=== PATIENT | male | born 1990 ===

== ENCOUNTER 2017-05-01 10:24 | Emergency (ER) | payer MEDICAID, OTHER ==
[2017-05-01 10:41] VITALS: BP 118/79
--- NOTE | 2017-05-01 11:19 | EDM.PDOC ---
ED HPI GENERAL MEDICAL PROBLEM - General Chief Complaint: Skin Complaint Stated Complaint: RASH ON LEFT LEG Time Seen by Provider: 05/01/17 10:40 Source of Information: Reports: Patient History Limitations: Reports: No Limitations - History of Present Illness INITIAL COMMENTS - FREE TEXT/NARRATIVE: The patient presents with a rash to the left leg and buttocks. This has been going on for 3 days but for about a week he has had tingling in his leg. He has chills but no fever. He has no chest pain, cough, or shortness of breath. He used some cream but it did not help. Onset: Gradual Duration: Day(s): (3) Location: Reports: Lower Extremity, Left Quality: Reports: Sharp Severity: Moderate Improves with: Reports: None Worsens with: Reports: None Associated Symptoms: Reports: Fever/Chills. Denies: Chest Pain, Cough, Headaches, Nausea/Vomiting, Shortness of Breath Left Groin Pain Score (Numeric/FACES): 8 - Related Data Allergies Allergy/AdvReac Type Severity Reaction Status Date / Time No Known Allergies Allergy Verified 05/01/17 10:42 Home Meds: Home Meds Hydrocodone/Acetaminophen [Hydrocodon-Acetaminophen 5-325] 1 - 2 each PO Q6HR PRN #20 tablet 05/01/17 [Rx] valACYclovir [Valtrex] 1,000 mg PO TID #21 tab 05/01/17 [Rx] Past Medical History - Past Health History Medical/Surgical History: Denies Medical/Surgical History Respiratory History: Reports: Bronchitis, Recurrent Genitourinary History: Reports: UTI, Recurrent Musculoskeletal History: Reports: Back Pain, Chronic, Fracture Neurological History: Reports: Concussion - Infectious Disease History Infectious Disease History: Reports: Chicken Pox - Past Surgical History HEENT Surgical History: Reports: Other (See Below) Other HEENT Surgeries/Procedures: dental surgery Male Surgical History: Reports: Other (See Below) Other Male Surgeries/Procedures: testicular hernia repair when he was a baby Social & Family History - Family History Cardiac: Reports: Aneurysm, Stent Oncologic: Reports: Other (See Below) Other Oncologic Family History: throat - Tobacco Use Smoking Status *Q: Current Every Day Smoker Years of Tobacco use: 10 Packs/Tins Daily: 0.5 Second Hand Smoke Exposure: Yes - Caffeine Use Caffeine Use: Reports: Soda - Alcohol Use Days Per Week of Alcohol Use: 0 - Recreational Drug Use Recreational Drug Use: No ED ROS GENERAL - Review of Systems Review Of Systems: See Below Constitutional: Reports: Chills. Denies: Fever HEENT: Reports: No Symptoms Respiratory: Reports: No Symptoms Cardiovascular: Reports: No Symptoms Endocrine: Reports: No Symptoms GI/Abdominal: Reports: No Symptoms : Reports: No Symptoms Musculoskeletal: Reports: Leg Pain Skin: Reports: No Symptoms ED EXAM, SKIN/RASH Exam: See Below Exam Limited By: No Limitations General Appearance: Alert, No Apparent Distress Ears: Normal External Exam Nose: Normal Inspection Head: Atraumatic, Normocephalic Neck: Normal Inspection Respiratory/Chest: No Respiratory Distress, Lungs Clear, Normal Breath Sounds Cardiovascular: Regular Rate, Rhythm, No Edema, No Murmur GI/Abdominal: Soft, Non-Tender, No Organomegaly, No Mass Back Exam: Normal Inspection Skin: Rash (Vesicular rash to the left thigh and buttock) Course - Vital Signs Last Recorded V/S: Last Vital Signs Temp 97.6 F 05/01/17 10:38 Pulse 110 H 05/01/17 10:38 Resp 16 05/01/17 10:38 BP 118/79 05/01/17 10:38 Pulse Ox 98 05/01/17 10:38 - Re-Assessments/Exams Free Text/Narrative Re-Assessment/Exam: 05/01/17 11:20 This appears to be shingles. I will get him on some valacyclivir and hydrocodone for pain. Departure - Departure Time of Disposition: 11:20 Disposition: Home, Self-Care 01 Condition: Good Clinical Impression: Shingles Qualifiers: Herpes zoster complications: unspecified herpes zoster complication Qualified Code(s): B02.8 - Zoster with other complications - Discharge Information Prescriptions: Hydrocodone/Acetaminophen [Hydrocodon-Acetaminophen 5-325] 1 - 2 each PO Q6HR PRN #20 tablet PRN Reason: Pain valACYclovir [Valtrex] 1,000 mg PO TID #21 tab Referrals: Ayleen Lopes MD [Physician] - 1 Week Forms: ED Department Discharge, ED Return to Work/School Form Additional Instructions: Take the valtrex 3 times per day for 7 days. Take the hydrocodone every 6 hours as needed for pain. Follow up with Dr Lopes in 1 week. Please return if you are worse.
== END 2017-05-01 11:32 | disposition home or self-care (01) ==
LOC: JD.ED 10:24
DX: B02.8 Zoster with other complications (principal); F17.210 Nicotine dependence, cigarettes, uncomplicated
CPT/HCPCS: 99283